=== PATIENT | female | born 1950 | race Caucasian/White ===

== ENCOUNTER 2019-09-22 08:43 | Emergency (ER) | payer MEDICAID ==
[~2019-09-22] VITALS: Ht 137.2 cm; Wt 64.0 kg
[2019-09-22 08:53] VITALS: BP 154/82
--- NOTE | 2019-09-22 09:00 | NUR ---
Patient ambulated to bed 7. RN evaluating patient at bedside.
--- NOTE | 2019-09-22 09:03 | NUR ---
69 Y/O F C/C BLOOD IN URINE SINCE THIS MORNING WITH PAINFUL URINATION /, BURNING SENSATION. PER PT NOTICED BLOOD CLOTS. PT NKA. HX: HTN. RX: LISINOPRIL, ASPIRIN. NO N/V/D. SIDE RAIL X1.
--- NOTE | 2019-09-22 09:10 | NUR ---
URINE TEST PH >9.0
--- NOTE | 2019-09-22 09:33 | NUR ---
Dr. Laura is evaluating the patient at bedside.
[2019-09-22 09:57] LABS: BASOPHILS # (AUTO) 0.1 K/uL (0.00-0.22); BASOPHILS % (AUTO) 0.5 % (0.0-2.0); EOSINOPHILS # (AUTO) 0.1 K/uL (0-0.4); EOSINOPHILS % (AUTO) 1.2 % (0.0-4.0); HEMATOCRIT 41.8 % (36-48); HEMOGLOBIN 13.8 g/dL (12.0-16.0); LYMPHOCYTES # (AUTO) 1.5 K/uL (2.5-16.5); LYMPHOCYTES % (AUTO) 14.4 % (20.5-51.1); MEAN CORPUSCULAR HEMOGLOBIN 32 pg (27-31); MEAN CORPUSCULAR HGB CONC 33 g/dL (33-37); MEAN CORPUSCULAR VOLUME 95.4 fL (80-94); MONOCYTES # (AUTO) 0.7 K/uL (0.8-1.0); MONOCYTES % (AUTO) 6.6 % (1.7-9.3); NEUTROPHILS # (AUTO) 8.2 K/uL (1.8-7.7); NEUTROPHILS % (AUTO) 77.3 % (42.2-75.2); PLATELET COUNT (AUTO) 242 K/uL (140-450); RED BLOOD CELL COUNT(AUTO) 4.38 MIL/uL (4.20-5.40); RED CELL DISTRIBUTION WIDTH 12.5 % (11.6-13.7); WHITE BLOOD COUNT (AUTO) 10.6 K/uL (4.8-10.8)
[2019-09-22 10:16] LABS: ANION GAP 13.2 (8-16); CARBON DIOXIDE 27.9 mmol/L (21-32); CREATININE 0.5 mg/dL (0.6-1.3); POTASSIUM 4.1 mmol/L (3.5-5.1)
[2019-09-22 10:32] LABS: APPEARANCE,URINE CLOUDY (CLEAR); BILIRUBIN,URINE NEGATIVE (NEGATIVE); BLOOD, URINE 3+ (NEGATIVE); COLOR,URINE RED (YELLOW); LEUKOCYTE ESTERASE ,URINE TRACE (NEGATIVE); NITRITE, URINE NEGATIVE (NEGATIVE); PH,URINE 6.5 (5.0-9.0); UGLUCOSE NEGATIVE (NEGATIVE)
--- NOTE | 2019-09-22 10:49 | NUR ---
MONITORING WATER INTAKE; PT VOIDING IN RESTROOM; MD NOTIFIED AND AWARE OF URINE STATUS.
[2019-09-22 11:10] LABS: RBC,URINE TOO NUMEROUS TO COUN /HPF (0-5); WBC,URINE NONE SEEN /HPF (0-5)
[2019-09-22] MEDS ORDERED: CEPHALEXIN 500 MG CAP PO ONE (11:15)
[2019-09-22 11:44] VITALS: BP 139/71
--- NOTE | 2019-09-22 11:44 | NUR ---
Patient discharged with v/s stable. Written and verbal after care instructions given and explained. Patient alert, oriented and verbalized understanding of instructions. Ambulatory with steady gait. All questions addressed prior to discharge. ID band removed. Patient advised to follow up with PMD. Rx of keflex, pyridium given. Patient educated on indication of medication including possible reaction and side effects. Opportunity to ask questions provided and answered.
== END 2019-09-22 11:44 | disposition home or self-care (01) ==
LOC: MED 08:43
DX: N39.0 Urinary tract infection, site not specified (principal); I10 Essential (primary) hypertension; Z90.710 Acquired absence of both cervix and uterus
CPT/HCPCS: 36415; 80048; 81001; 85025; 87086; 87186; 99283

== ENCOUNTER 2019-11-28 20:03 | Emergency (ER) | payer MEDICAID ==
[~2019-11-28] VITALS: Ht 152.4 cm; Wt 72.6 kg
[2019-11-28 20:08] VITALS: BP 151/91
[2019-11-28] MEDS ORDERED: ASPIRIN 81 MG TAB.CHEW PO ONE (20:25)
[2019-11-28] MEDS ORDERED: NACL 0.9% 250 ML IV ONE (20:25)
--- NOTE | 2019-11-28 20:35 | NUR ---
69 YO FEMALE CO PALPITAIONS THAT CAUSE A SHOOTING PAIN IN HER LEFT ARM THAT STARTED YESTERDAY. PT HAS HX OF HTN AND CURRENTLY TAKING LISINOPRIL. 12 LEAD EKG WAS DONE AT BEDSIDE. NSR. NO MED ALLERGIES
[2019-11-28 20:51] LABS: BASOPHILS # (AUTO) 0.1 K/uL (0.00-0.22); BASOPHILS % (AUTO) 1.1 % (0.0-2.0); EOSINOPHILS # (AUTO) 0.2 K/uL (0-0.4); EOSINOPHILS % (AUTO) 2.3 % (0.0-4.0); HEMATOCRIT 41.7 % (36-48); LYMPHOCYTES # (AUTO) 2.4 K/uL (2.5-16.5); LYMPHOCYTES % (AUTO) 33.4 % (20.5-51.1); MEAN CORPUSCULAR HEMOGLOBIN 32 pg (27-31); MEAN CORPUSCULAR HGB CONC 34 g/dL (33-37); MEAN CORPUSCULAR VOLUME 94.6 fL (80-94); MONOCYTES # (AUTO) 0.5 K/uL (0.8-1.0); MONOCYTES % (AUTO) 7.7 % (1.7-9.3); NEUTROPHILS # (AUTO) 3.9 K/uL (1.8-7.7); NEUTROPHILS % (AUTO) 55.5 % (42.2-75.2); PLATELET COUNT (AUTO) 240 K/uL (140-450); RED BLOOD CELL COUNT(AUTO) 4.41 MIL/uL (4.20-5.40); RED CELL DISTRIBUTION WIDTH 12.9 % (11.6-13.7); WHITE BLOOD COUNT (AUTO) 7.1 K/uL (4.8-10.8)
[2019-11-28 21:04] LABS: ALBUMIN 3.6 g/dL (3.4-5.0); ANION GAP 9.8 (8-16); CARBON DIOXIDE 29.8 mmol/L (21-32); CREATININE 0.8 mg/dL (0.6-1.3); POTASSIUM 3.6 mmol/L (3.5-5.1); TOTAL BILIRUBIN 0.3 mg/dL (0.0-1.0)
[2019-11-28 23:04] VITALS: BP 151/91
--- NOTE | 2019-11-28 23:05 | NUR ---
Patient discharged with v/s stable. Written and verbal after care instructions given and explained. Patient verbalized understanding. Ambulatory with steady gait. All questions addressed prior to discharge. Advised to follow up with PMD.
== END 2019-11-28 23:05 | disposition home or self-care (01) ==
LOC: MED 20:03
DX: R00.2 Palpitations (principal); M79.621 Pain in right upper arm; R63.0 Anorexia; R11.0 Nausea; I10 Essential (primary) hypertension; Z98.890 Other specified postprocedural states
CPT/HCPCS: 36415; 71045; 80053; 84484; 85025; 93005; 96360; 99285; J7030; Q0092

== ENCOUNTER 2021-03-13 21:04 | Emergency (ER) | payer MEDICAID ==
[~2021-03-13] VITALS: Ht 134.6 cm; Wt 66.7 kg
[2021-03-13 21:32] VITALS: BP 179/93
--- NOTE | 2021-03-13 23:50 | NUR ---
PT STILL IN LOBBY WITH HUMAN RESOURCES ADMINISTRATOR. PT STILL COUGHING. PT NOT IN DISTRESS. NO REQUESTS MADE AT THIS TIME. VS TAKEN. WILL CONTINUE TO MONITOR.
--- NOTE | 2021-03-14 | NUR ---
PT AMBULATED TO BED 10
--- NOTE | 2021-03-14 00:05 | NUR ---
c/o cough thats been going on for 3weeks. reports of headache, and throat pain. Patient recently had COVID testing done at [facility] on 03/09/21 at [facility] and received results today that patient is negative. Patient reports of taking robutussin for 1 week but stopped because patient was unrelieved. Auscultation of lungs bilateral lower lobes has some adventitious sounds but oxygen saturation shows to be around 98%. At times patient feels like out of breath. AAOx4. VSS. PMH: HTN NKA
--- NOTE | 2021-03-14 00:35 | NUR ---
DESI COTTRELL, AT BEDSIDE FOR EXAMINATION
--- NOTE | 2021-03-14 00:37 | NUR ---
Dr. Laura examining patient.
[2021-03-14] MEDS ORDERED: predniSONE 20 MG TAB PO ONE (00:45)
[2021-03-14] MEDS ORDERED: AZIT250T4 PO (00:45)
[2021-03-14] MEDS ORDERED: ALBUTEROL SULFATE/IPRATROPIU 3 ML SOL IH ONE (00:45)
[2021-03-14] MEDS ORDERED: PROM473S5 PO (00:45)
[2021-03-14] MEDS ORDERED: AZITHROMYCIN 250 MG TAB PO ONE (00:45)
[2021-03-14] MEDS ORDERED: ALBU0.0912 IH (00:45)
[2021-03-14] MEDS ORDERED: BENZ-196 PO (00:45)
[2021-03-14] MEDS ORDERED: PRED20TA5 PO (00:45)
--- NOTE | 2021-03-14 00:46 | NUR ---
PATIENT UNHOOKED FROM MONITOR. AMBULATED TO THE BATHROOM.
--- NOTE | 2021-03-14 00:47 | NUR ---
RT at bedside to give patient breathing treatment
--- NOTE | 2021-03-14 00:47 | NUR ---
Respiratory Therapist at bedside for respiratory intervention.
[2021-03-14] MEDS: BENZONATATE 100 MG CAPLF PO SCH ×2 (00:53→00:54)
--- NOTE | 2021-03-14 00:54 | NUR ---
EKG PERFORMED AT BEDSIDE. EKG READS SINUS RHYTHM @ 73
[2021-03-14 01:28] VITALS: BP 175/91
--- NOTE | 2021-03-14 01:28 | NUR ---
Patient discharged with v/s stable. Written and verbal after care instructions given and explained. Patient alert, oriented and verbalized understanding of instructions. Ambulatory with steady gait. All questions addressed prior to discharge. ID band removed. Patient advised to follow up with PMD. Rx of albuterol sulfate, azithromycin, benzonatate, prednisone, promethazine/DM 6025/15MG-5ML given. Patient educated on indication of medication including possible reaction and side effects. Opportunity to ask questions provided and answered.
== END 2021-03-14 01:28 | disposition home or self-care (01) ==
LOC: MED 21:04
DX: J18.9 Pneumonia, unspecified organism (principal); J20.9 Acute bronchitis, unspecified; I10 Essential (primary) hypertension; Z79.899 Other long term (current) drug therapy
CPT/HCPCS: 71045; 93005; 94640; 99285; J7512

== ENCOUNTER 2021-07-30 10:02 | Emergency (ER) | payer MEDICAID ==
[~2021-07-30] VITALS: Ht 147.3 cm; Wt 64.0 kg
[~2021-07-30 10:02] MED LIST: ALBU0.0912 IH; AZIT250T4 PO; BENZ-196 PO; PRED20TA5 PO; PROM473S5 PO
[2021-07-30 10:08] VITALS: BP 134/75
--- NOTE | 2021-07-30 10:12 | NUR ---
PT TO WAIT IN LOBBY.
--- NOTE | 2021-07-30 10:30 | NUR ---
Alena frances in ED - 07/30/21 at 1041 by STEVEN Patient ambulated to bed 03 with steady/even gait. UA collected.
--- NOTE | 2021-07-30 10:34 | NUR ---
PT AMBULATED TO ER BED 3 WITH A STEADY GAIT.
--- NOTE | 2021-07-30 10:40 | NUR ---
71 y/o F BIB self from home c/o hematuria x 6 days. Patient A&Ox4, ambulatory, states hematuria with intermittent dysuria "cat scratching down there." Patient denies abdominal pain, fever, chills, nausea, vomiting, diarrhea, constipation, chest pain, SOB, cold-like symptoms. Pt placed into a gown and UA collected. youth nutritional monitor in place; VSS respirations even/unlabored SpO2 93% on room air patient denies SOB. Bed locked in lowest position, side rails x 1. PMH: HTN Meds: Lisinopril NKA Sx: hysterectomy
--- NOTE | 2021-07-30 10:45 | NUR ---
Dr. Paulson is evaluating patient at bedside
--- NOTE | 2021-07-30 11:07 | NUR ---
UA and blood sample/cultures walked to lab and handed to CPT Kayla
--- NOTE | 2021-07-30 11:07 | NUR ---
Oral temperature 98.2. Dr. Paulson made aware
--- NOTE | 2021-07-30 11:14 | NUR ---
Pt transported to [facility] by
[2021-07-30 11:16] LABS: BASOPHILS % (AUTO) 0.3 % (0.0-2.0); EOSINOPHILS # (AUTO) 0.1 K/uL (0-0.4); EOSINOPHILS % (AUTO) 0.7 % (0.0-4.0); HEMATOCRIT 41.6 % (36-48); HEMOGLOBIN 14.3 g/dL (12.0-16.0); LYMPHOCYTES # (AUTO) 1.5 K/uL (2.5-16.5); MEAN CORPUSCULAR HEMOGLOBIN 32 pg (27-31); MEAN CORPUSCULAR HGB CONC 34 g/dL (33-37); MONOCYTES # (AUTO) 0.7 K/uL (0.8-1.0); MONOCYTES % (AUTO) 7.3 % (1.7-9.3); NEUTROPHILS % (AUTO) 75.7 % (42.2-75.2); PLATELET COUNT (AUTO) 224 K/uL (140-450); RED BLOOD CELL COUNT(AUTO) 4.47 MIL/uL (4.20-5.40); RED CELL DISTRIBUTION WIDTH 12.7 % (11.6-13.7); WHITE BLOOD COUNT (AUTO) 9.3 K/uL (4.8-10.8)
--- NOTE | 2021-07-30 11:26 | NUR ---
Patient returned from RAD by WC. Placed back onto cardiac rn.
[2021-07-30 11:36] LABS: PROTHROMBIN TIME 9.6 secs (10.8-13.4)
[2021-07-30 11:37] LABS: ALBUMIN 3.6 g/dL (3.4-5.0); ANION GAP 12.8 (8-16); ASPARTATE AMINOTRANSFERASE 24 U/L (15-37); CHLORIDE 104 mmol/L (98-107); CREATININE 0.6 mg/dL (0.6-1.3); GLUCOSE 105 mg/dL (74-106); POTASSIUM 3.8 mmol/L (3.5-5.1); SODIUM SERUM 141 mmol/L (136-145); TOTAL BILIRUBIN 0.4 mg/dL (0.0-1.0); UREA NITROGEN, BLOOD 12 mg/dL (7-18)
[2021-07-30 12:01] LABS: BILIRUBIN,URINE 1+ (NEGATIVE); BLOOD, URINE 3+ (NEGATIVE); LEUKOCYTE ESTERASE ,URINE 2+ (NEGATIVE); NITRITE, URINE POSITIVE (NEGATIVE); UGLUCOSE NEGATIVE (NEGATIVE)
[2021-07-30 12:05] LABS: COLOR,URINE LT. ORANGE (YELLOW)
[2021-07-30 12:06] LABS: APPEARANCE,URINE HAZY (CLEAR)
[2021-07-30 12:09] LABS: RBC,URINE >100 /HPF (0-5)
[2021-07-30 12:10] LABS: WBC,URINE 16-25 (MOD) /HPF (0-5)
[2021-07-30] MEDS ORDERED: cefTRIAXone 1,000 MG VIAL ONE (12:50)
--- NOTE | 2021-07-30 12:58 | NUR ---
Administered scheduled rocephin. Pt denies any pain at the moment.
[2021-07-30] MEDS ORDERED: CEPH-588 PO (13:11)
[2021-07-30 13:48] VITALS: BP 127/73
== END 2021-07-30 13:38 | disposition home or self-care (01) ==
LOC: MED 10:02
DX: N30.01 Acute cystitis with hematuria (principal); N39.0 Urinary tract infection, site not specified; I10 Essential (primary) hypertension; Z79.899 Other long term (current) drug therapy
CPT/HCPCS: 36415; 74176; 80053; 81001; 83605; 85025; 85610; 85730; 87040; 96365; 99284; J0696